=== PATIENT | female | born 1985 | race American Indian/Alaskan Native ===

== ENCOUNTER 2017-02-08 17:12 | Emergency (ER) | payer OTHER ==
[2017-02-08] MEDS ORDERED: ULTRAM PO ONE (19:44)
[2017-02-08 20:02] LABS: Bilirubin,Urine NEG (Negative); Blood,Urine NEG (Negative); Ketones,Urine TR mg/dL (Negative); Leukocyte Esterase,Urine TR (Negative); Mucus,Urine 2+ /HPF; Nitrite,Urine NEG (Negative); Urobilinogen,Urine < 2.0 mg/dL (<2.0)
--- NOTE | 2017-02-08 20:54 | Emergency Department Report ---
Entered by TANYA GU, acting as scribe for ISABEL DOMINGUEZ NP. ED ENT HPI - General Chief complaint: Dental/Oral Stated complaint: SEVERE TOOTH PAIN/VAG DISCHARGE Time Seen by Provider: 02/08/17 18:48 Source: patient Mode of arrival: Ambulatory Limitations: No Limitations - History of Present Illness Initial comments: 31 y/o female with no significant PMHx, presents to the ED c/o left upper dental pain that worsened yesterday. She states that she has had intermittent issues with the teeth in that area previously, but states that one of her teeth in that area broke prior to the increase in severity of the symptoms. 10 severity, with no alleviation from taking "left over antibiotics", goody powder , Tylenol, Motrin, Tylenol PM, and Oragel without any relief of the symptoms. Associated symptoms of headache and left ear area pain, but she denies fever. She states that after taking the left over unspecified antibiotics, she began having a white vaginal discharge, vaginal area itching, burning with urination, and some "small white specks" in the external vaginal area. LMP 01/17/2017. Noted the patient did not drive to the ED today and her is in the waiting room to drive her home. MD complaint: tooth pain (broken tooth) -: days(s) (1 day) Location: other (left upper molars) 1 - left upper area molars Severity: severe Severity scale (0 -10): 10 Quality: constant Consistency: constant Improves with: none (no alleviation of the symptoms with goody powder, motrin, tylenol, tylenol PM, and oragel) Worsens with: none Context- Dental: history of dental caries (patient has had intermittent issues with the affected tooth) Associated Symptoms: other (white-elisa vaginal discharge, burning with urination , vaginal area itching). denies: fever - Related Data Previous Rx's Medication Instructions Recorded Last Taken Type Amoxicillin/K Clav Tab [Augmentin 1 tab PO Q12HR 7 Days 02/08/17 Unknown Rx 875 mg] Ibuprofen [Motrin 600 MG tab] 600 mg PO Q8H PRN 7 Days 02/08/17 Unknown Rx Allergies Allergy/AdvReac Type Severity Reaction Status Date / Time No Known Allergies Allergy Verified 02/08/17 17:31 ED Dental HPI - General Chief complaint: Dental/Oral Stated complaint: SEVERE TOOTH PAIN/VAG DISCHARGE Time Seen by Provider: 02/08/17 18:48 Source: patient Mode of arrival: Ambulatory Limitations: No Limitations - Related Data Previous Rx's Medication Instructions Recorded Last Taken Type Amoxicillin/K Clav Tab [Augmentin 1 tab PO Q12HR 7 Days 02/08/17 Unknown Rx 875 mg] Ibuprofen [Motrin 600 MG tab] 600 mg PO Q8H PRN 7 Days 02/08/17 Unknown Rx Allergies Allergy/AdvReac Type Severity Reaction Status Date / Time No Known Allergies Allergy Verified 02/08/17 17:31 ED Review of Systems Comment: All other systems reviewed and negative Constitutional: denies: fever Eyes: denies: eye pain, eye discharge, vision change ENT: dental pain (left upper molars) Respiratory: denies: cough, shortness of breath, wheezing Cardiovascular: denies: chest pain, palpitations Endocrine: no symptoms reported Gastrointestinal: denies: abdominal pain, nausea, diarrhea Genitourinary: other (white vaginal discharge, vaginal area itching, burning with urination, "small white specks" in the external vaginal area) Musculoskeletal: denies: back pain, joint swelling, arthralgia Skin: denies: rash, lesions Neurological: headache Psychiatric: denies: anxiety, depression Hematological/Lymphatic: denies: easy bleeding, easy bruising ED Past Medical Hx - Past Medical History Hx Hypertension: No Hx CVA: No Hx Heart Attack/AMI: No Hx Congestive Heart Failure: No Hx Diabetes: No Hx Deep Vein Thrombosis: No Hx Pulmonary Embolism: No Hx GERD: No Hx Liver Disease: No Hx Renal Disease: No Hx Sickle Cell Disease: No Hx Arthritis: No Hx Headaches / Migraines: No Hx Seizures: No Hx Kidney Stones: No Hx Psychiatric Treatment: No Hx Asthma: Yes Hx COPD: No Hx Tuberculosis: No Hx Dementia: No Hx HIV: No - Surgical History Past Surgical History?: No Hx Coronary Stent: No Hx Open Heart Surgery: No Hx Pacemaker: No Hx Internal Defibrillator: No Hx Cholecystectomy: No Hx Appendectomy: No Hx Breast Surgery: No - Social History Smoking Status: Current Some Day Smoker Substance Use Type: Alcohol - Medications Home Medications: Home Medications Medication Instructions Recorded Confirmed Last Taken Type Amoxicillin/K Clav Tab [Augmentin 1 tab PO Q12HR 7 Days 02/08/17 Unknown Rx 875 mg] Ibuprofen [Motrin 600 MG tab] 600 mg PO Q8H PRN 7 Days 02/08/17 Unknown Rx ED Physical Exam - General Limitations: No Limitations General appearance: alert, in no apparent distress - Head Head exam: Present: atraumatic, normocephalic - Eye Eye exam: Present: normal appearance, EOMI - ENT ENT exam: Present: normal orophraynx, normal external ear exam, other (noted are diffuse caries in the left upper molars, with no signs of drainage or dental abscess) - Neck Neck exam: Present: normal inspection, full ROM. Absent: tenderness - Respiratory Respiratory exam: Present: normal lung sounds bilaterally. Absent: respiratory distress, wheezes, rales, rhonchi, stridor - Cardiovascular Cardiovascular Exam: Present: regular rate, normal rhythm, normal heart sounds. Absent: systolic murmur, diastolic murmur, rubs, gallop - GI/Abdominal GI/Abdominal exam: Present: soft. 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 Absent: erythema, swelling, lesions - Extremities Exam Extremities exam: Present: normal inspection, full ROM - Back Exam Back exam: Present: normal inspection, full ROM - Neurological Exam Neurological exam: Present: alert, oriented X3, CN II-XII intact, normal gait - Psychiatric Psychiatric exam: Present: normal affect, normal mood - Skin Skin exam: Present: warm, dry, intact, normal color. Absent: rash ED Course Vital Signs 02/08/17 17:32 Temperature 98.2 F Pulse Rate 86 Respiratory 19 Rate Blood Pressure 135/93 O2 Sat by Pulse 100 Oximetry ED Medical Decision Making - Medical Decision Making Ed course: 31-year-old female that presents with left first and second molars. 1- I instructed the patient to follow with the dentist as soon as possible. 2- I instructed the patient to take antibiotics as prescribed. Finish full course of antibiotics. 3- UA and test obtained and sent to lab. No signs of urinary tract infection negative for recent test. 4-at the time of discharge the patient does not seem toxic or ill appearance. No signs and distress noted. 5- patient agreed to discharge plan and treatment. No further questions noted from the patient. ED Disposition Clinical Impression: Dental caries Disposition: DISCHARGED TO HOME OR SELFCARE Is pt being admited?: No Does the pt Need Aspirin: No Condition: Stable Instructions: Dental Caries (ED) Additional Instructions: Please follow-up with your dentist as soon as possible. If symptoms worsen such as severe headache, abscess, facial numbness or pain report back to emergency room. Take full course of antibiotic as prescribed. Prescriptions: Amoxicillin/K Clav Tab [Augmentin 875 mg] 1 tab PO Q12HR 7 Days Ibuprofen [Motrin 600 MG tab] 600 mg PO Q8H PRN 7 Days PRN Reason: Pain Referrals: PRIMARY CARE,MD [Primary Care Provider] - 3-5 Days [facility] [Outside] - 24 Hours This documentation as recorded by the BRITTANIE waite GRACE,accurately reflects the service I personally performed and the decisions made by ,ISABEL DOMINGUEZ, [employer] DIRECTOR.
[2017-02-08 21:07] VITALS: BP 123/88
== END 2017-02-08 21:05 | disposition home or self-care (01) ==
LOC: ED 17:12
DX: K02.9 Dental caries, unspecified (principal); J45.909 Unspecified asthma, uncomplicated; Z72.0 Tobacco use
CPT/HCPCS: 81001; 81025; 99283

== ENCOUNTER 2017-04-09 14:33 | Emergency (ER) | payer SELFPAY ==
--- NOTE | 2017-04-09 15:34 | XRay Report ---
LEFT HAND, 2 views: History: Left thumb injury, pain. Posterior dislocation of the distal interphalangeal joint of the left thumb is identified. No associated fracture. The remaining bony structures and joint spaces are unremarkable. IMPRESSION: Dislocation, distal interphalangeal joint, left thumb.
[2017-04-09] MEDS ORDERED: NORCO 7.5/325 PO ONE (17:30)
[2017-04-09] MEDS ORDERED: FLEXERIL PO ONE (17:30)
[2017-04-09] MEDS ORDERED: PERCOCET 5/325 PO ONE (17:31)
[2017-04-09] MEDS ORDERED: XYLOCAINE 1% MPF 5 mL INFILTRATI ONE (17:42)
[2017-04-09] MEDS ORDERED: MORPHINE IM ONE (18:09)
[2017-04-09] MEDS ORDERED: ZOFRAN PO ONE (18:11)
[2017-04-09] MEDS ORDERED: ZOFRAN ODT ONE (18:14)
[2017-04-09] MEDS ORDERED: ZOFRAN ODT PO ONE (18:19)
--- NOTE | 2017-04-09 18:39 | Emergency Department Report ---
<ZUNILDA LING - Last Filed: 04/09/17 18:51> ED Upper Extremity Inj HPI - General Chief Complaint: Extremity Injury, Upper Stated Complaint: LEFT THUMB INJURY/PAIN Source: patient Mode of arrival: Ambulatory Limitations: No Limitations - History of Present Illness Initial Comments: 32 year old female presents to ED with left thumb pain. patient states she tripped, fell and hit her hand on wall. patient is stable, neurologically intact and in no acute distress. MD Complaint: Injury to:: left -: Gradual Other Extremity Injury: Fingers: Left (thumb) Other Injuries: none Improves With: none Worsens With: none Context: fall Associated Symptoms: denies other symptoms - Related Data Previous Rx's Medication Instructions Recorded Last Taken Type Naproxen [Naprosyn TAB] 500 mg PO BID #20 tablet 04/09/17 Unknown Rx traMADol [Ultram 50 MG tab] 50 mg PO Q4HR PRN #20 tablet 04/09/17 Unknown Rx Allergies Allergy/AdvReac Type Severity Reaction Status Date / Time No Known Allergies Allergy Verified 04/09/17 14:51 ED Review of Systems ROS: Stated complaint: LEFT THUMB INJURY/PAIN Other details as noted in HPI Constitutional: denies: chills, fever Eyes: denies: eye pain, eye discharge, vision change ENT: denies: ear pain, throat pain Respiratory: denies: cough, shortness of breath, wheezing Cardiovascular: denies: chest pain, palpitations Endocrine: no symptoms reported Gastrointestinal: denies: abdominal pain, nausea, diarrhea Genitourinary: denies: urgency, dysuria, discharge Musculoskeletal: joint swelling, arthralgia. denies: back pain Skin: denies: rash, lesions Neurological: denies: headache, weakness, paresthesias Psychiatric: denies: anxiety, depression Hematological/Lymphatic: denies: easy bleeding, easy bruising ED Past Medical Hx - Past Medical History Hx Hypertension: No Hx CVA: No Hx Heart Attack/AMI: No Hx Congestive Heart Failure: No Hx Diabetes: No Hx Deep Vein Thrombosis: No Hx Pulmonary Embolism: No Hx GERD: No Hx Liver Disease: No Hx Renal Disease: No Hx Sickle Cell Disease: No Hx Arthritis: No Hx Headaches / Migraines: No Hx Seizures: No Hx Kidney Stones: No Hx Psychiatric Treatment: No Hx Asthma: Yes Hx COPD: No Hx Tuberculosis: No Hx Dementia: No Hx HIV: No - Surgical History Hx Coronary Stent: No Hx Open Heart Surgery: No Hx Pacemaker: No Hx Internal Defibrillator: No Hx Cholecystectomy: No Hx Appendectomy: No Hx Breast Surgery: No - Social History Smoking Status: Current Every Day Smoker Substance Use Type: Alcohol - Medications Home Medications: Home Medications Medication Instructions Recorded Confirmed Last Taken Type Naproxen [Naprosyn TAB] 500 mg PO BID #20 tablet 04/09/17 Unknown Rx traMADol [Ultram 50 MG tab] 50 mg PO Q4HR PRN #20 tablet 04/09/17 Unknown Rx ED Physical Exam - General Limitations: No Limitations General appearance: alert, in no apparent distress - Head Head exam: Present: atraumatic, normocephalic - Eye Eye exam: Present: normal appearance - ENT ENT exam: Present: mucous membranes moist - Neck Neck exam: Present: normal inspection. Absent: tenderness - Respiratory Respiratory exam: Present: normal lung sounds bilaterally. Absent: respiratory distress - Cardiovascular Cardiovascular Exam: Present: regular rate, normal rhythm. Absent: systolic murmur, diastolic murmur, rubs, gallop - GI/Abdominal GI/Abdominal exam: Present: soft, normal bowel sounds. Absent: tenderness - Extremities Exam Extremities exam: Present: normal inspection - Expanded Upper Extremity Exam Left Shoulder Exam: Present: normal inspection, full ROM Upper Arm exam: Present: normal inspection, full ROM Elbow exam: Present: normal inspection, full ROM Forearm Wrist exam: Present: normal inspection, full ROM Hand Wrist exam: Present: tenderness (left thumb), deformity, dislocation Neuro motor exam: Present: wrist extension intact Neurosensory exam: Present: radial nerve intact Vascular: Present: normal capillary refill, radial pulse. Absent: vascular compromise - Back Exam Back exam: Present: normal inspection, full ROM. Absent: tenderness - Neurological Exam Neurological exam: Present: alert, oriented X3, normal gait - Psychiatric Psychiatric exam: Present: normal affect, normal mood - Skin Skin exam: Present: warm, dry, intact, normal color. Absent: rash ED Course Vital Signs 04/09/17 14:51 Temperature 98.6 F ED Medical Decision Making - Radiology Data Radiology results: report reviewed xr hand left: dislocation, distal interphalangeal joint, left thumb. - Medical Decision Making 32 year old female presents to ED with left thumb pain. I have manually reduced patient's thumb and ordered second imaging study for reassesment. Critical care attestation.: If time is entered above; I have spent that time in minutes in the direct care of this critically ill patient, excluding procedure time. ED Disposition Clinical Impression: Dislocation closed, fingers Qualifiers: Encounter type: initial encounter Qualified Code(s): S63.259A - Unspecified dislocation of unspecified finger, initial encounter Disposition: - TO HOME OR SELFCARE Is pt being admited?: No Does the pt Need Aspirin: No Condition: Good Instructions: Finger Dislocation (ED) Prescriptions: Naproxen [Naprosyn TAB] 500 mg PO BID #20 tablet traMADol [Ultram 50 MG tab] 50 mg PO Q4HR PRN #20 tablet PRN Reason: Pain Referrals: SANDRA ARGUETA MD [Staff Physician] - 24 Hours Forms: Work/School Release Form(ED) <LIZZ MARES - Last Filed: 04/09/17 19:53> ED Medical Decision Making - Radiology Data Radiology results: image reviewed interpreted by me: Second images of the left thumb reveals complete reduction of previously noted dislocation. No visible fractures noted. - Medical Decision Making I resumed care of patient from my colleague. Reviewed postreduction x-rays with the patient in room. Patient placed in thumb spica splint to keep joint immobilized. I will refer patient to orthopedics for further evaluation. Patient is in agreement with treatment plan patient is stable for discharge. ED Disposition Is pt being admited?: No Does the pt Need Aspirin: No Time of Disposition: 19:53
--- NOTE | 2017-04-09 20:25 | XRay Report ---
FINAL REPORT EXAM: XR FINGER(S) 2 LT HISTORY: post-reduction of dislocation involving the DIP joint of the left thumb TECHNIQUE: AP and lateral views of the left thumb PRIORS: X-rays left hand 04/09/2017 at 1514 hours FINDINGS: There has been successful reduction of the dislocation involving the distal interphalangeal joint of the left thumb. There is no evidence for acute fracture. Generalized soft tissue swelling is present throughout the thumb. IMPRESSION: Successful reduction of the 1st DIP joint dislocation without fracture.
== END 2017-04-09 20:33 | disposition home or self-care (01) ==
LOC: ED 14:33
DX: S63.145A Dislocation of distal interphalangeal joint of left thumb, initial encounter (principal); J45.909 Unspecified asthma, uncomplicated; F17.200 Nicotine dependence, unspecified, uncomplicated; W18.09XA Striking against other object with subsequent fall, initial encounter; Y93.89 Activity, other specified; Y99.8 Other external cause status; Y92.89 Other specified places as the place of occurrence of the external cause
CPT/HCPCS: 26670; 73120; 73140; 96372; 99284; J2270; Q0162

== ENCOUNTER 2018-02-25 02:16 | Emergency (ER) | payer OTHER ==
[2018-02-25 03:36] LABS: Basophils % (Auto) 0.6 % (0.0-1.8); Eosinophils # (Auto) 0.2 K/mm3 (0.0-0.4); Eosinophils % (Auto) 2.8 % (0.0-4.3); Hematocrit 36.3 % (30.3-42.9); Hemoglobin 12.4 gm/dl (10.1-14.3); Lymphocytes # (Auto) 3.3 K/mm3 (1.2-5.4); Mean Corpuscular HGB Conc 34 % (30-34); Mean Corpuscular Hemoglobin 31 pg (28-32); Mean Corpuscular Volume 90 fl (79-97); Monocytes # (Auto) 0.6 K/mm3 (0.0-0.8); Monocytes % (Auto) 7.6 % (0.0-7.3); Platelet Count 316 K/mm3 (140-440); Red Blood Count 4.05 M/mm3 (3.65-5.03); Red Cell Distribution Width 14.3 % (13.2-15.2)
[2018-02-25 03:45] LABS: BUN/Creatinine Ratio 18; Blood Urea Nitrogen 9 mg/dL (7-17); Calcium 8.6 mg/dL (8.4-10.2); Hemolysis Index 3
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
[2018-02-25 03:53] LABS: Bilirubin,Urine NEG (Negative); Blood,Urine NEG (Negative); Color,Urine Yellow (Yellow); Mucus,Urine 2+ /HPF; WBC,Urine < 1.0 /HPF (0.0-6.0)
[2018-02-25 04:01] LABS: Amphetamine Screen,Urine PRESUMPTIVE NEGATIVE; Benzodiazepines Screen,Urine PRESUMPTIVE NEGATIVE; Cocaine Screen,Urine PRESUMPTIVE NEGATIVE; Methadone Screen,Urine PRESUMPTIVE NEGATIVE; Opiate Screen,Urine PRESUMPTIVE NEGATIVE
--- NOTE | 2018-02-25 04:30 | XRay Report ---
FINAL REPORT EXAM: XR HIP 2-3V LT HISTORY: decreased ROM OF LEFT HIP TECHNIQUE: An AP view of the pelvis was obtained along with a frogleg view of the left hip. FINDINGS: The left hip joint appears normal. Joint fluid is not seen. The bony pelvic ring appears intact. The SI joints right hip joint appear normal. The soft tissues are unremarkable. IMPRESSION: Within normal limits.
[2018-02-25 04:43] LABS: Cannabinoid Screen,Urine PRESUMPTIVE POSITIVE
[2018-02-25] MEDS ORDERED: GEODON IM PRN (09:44)
--- NOTE | 2018-02-25 13:11 | Consultation ---
History of Present Illness - Reason for Consult Consult date: 02/25/18 Reason for consult: Mental Health Evaluation Requesting physician: HALEY SINGH - Chief Complaint Chief complaint: "I don't want to talk" - History of Present Psychiatric Illness 33 years old female with history of severe depression presenting to the ER for a possible suicide attempt. Today the patient is uncooperative during the assessment. She was asked several times during the interview if she want to discuss what happened prior to coming to the ER and she replied "No." Medications and Allergies Allergies Allergy/AdvReac Type Severity Reaction Status Date / Time No Known Allergies Allergy Verified 04/09/17 14:51 Home Medications Medication Instructions Recorded Confirmed Last Taken Type Naproxen [Naprosyn TAB] 500 mg PO BID #20 tablet 04/09/17 Unknown Rx traMADol [Ultram 50 MG tab] 50 mg PO Q4HR PRN #20 tablet 04/09/17 Unknown Rx Active Meds: Active Medications Ziprasidone (Geodon) 10 mg IM Q2H PRN PRN Reason: Agitation Last Admin: 02/25/18 10:23 Dose: 10 mg Past psychiatric history - Past Medical History Past Medical History: other (Unable to oatain) Past Surgical History: Other (Unable to obtain) - past Psychiatric treatment and history psychiatric treatment history: Unable to obtain a psy hx and afam psy hx. - Social History Social history: other (Unable to obtain) Mental Status Exam - Vital signs Last Vital Signs Temp 98.8 F 02/25/18 02:29 Pulse 77 02/25/18 02:29 Resp 18 02/25/18 02:29 BP 139/95 02/25/18 02:29 Pulse Ox 100 02/25/18 02:29 - Exam Narrative exam: Unable to complete the MSE because the patient refused to cooperate. Results Result Diagrams: 02/25/18 03:02 02/25/18 03:02 Abnormal lab results 02/25/18 02/25/18 02/25/18 Range/Units 03:02 03:02 03:02 Lymph % (Auto) (13.4-35.0) % [place] % (Auto) (0.0-7.3) % Sodium 135 L (137-145) mmol/L Carbon Dioxide 21 L (22-30) mmol/L Creatinine 0.5 L (0.7-1.2) mg/dL U Epithel Cells (Auto) (0-13.0) /HPF Salicylates < 0.3 L (2.8-20.0) mg/dL Acetaminophen < 5.0 L (10.0-30.0) ug/mL 02/25/18 02/25/18 Range/Units 03:02 Unknown Lymph % (Auto) 42.0 H (13.4-35.0) % [place] % (Auto) 7.6 H (0.0-7.3) % Sodium (137-145) mmol/L Carbon Dioxide (22-30) mmol/L Creatinine (0.7-1.2) mg/dL U Epithel Cells (Auto) 17.0 H (0-13.0) /HPF Salicylates (2.8-20.0) mg/dL Acetaminophen (10.0-30.0) ug/mL All other labs normal. Assessment and Plan Assessment and plan: Impression: Today the patient uncooperative during the assessment. Per the record the patient may have attempted suicide. Recommendation/Plan: Continue 1013 and attempt to reassess patient in 24 hours.
[2018-02-25 19:53] VITALS: BP 132/96
== END 2018-02-25 22:55 ==
LOC: ED 02:16 → EEVIPCON 02:16 → ED 22:55
DX: F32.9 Major depressive disorder, single episode, unspecified (principal); F17.200 Nicotine dependence, unspecified, uncomplicated
CPT/HCPCS: 36415; 73502; 80048; 80307; 81001; 84703; 85025; 96372; 99285; G0480; J3486; 80320

== ENCOUNTER 2020-08-02 08:13 | Emergency (ER) | payer SELFPAY ==
[2020-08-02 08:40] VITALS: BP 113/77
--- NOTE | 2020-08-02 08:56 | XRay Report ---
RIGHT HAND 2 VIEWS INDICATION: swelling. COMPARISON: None. IMPRESSION: There is moderate to severe diffuse soft tissue swelling. No acute osseous injury or yariel int pathology is detected. Signer Name: Elian Bryan Jr, MD Signed: 08/02/2020 8:52 AM Workstation Name: [id number]
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
[2020-08-02] MEDS ORDERED: IBUPROFEN 800 MG TAB PO ONE (10:35)
[2020-08-02] MEDS ORDERED: HYDROcodone/ACETAMINOPHEN 5-325 MG TAB PO ONE (10:35)
--- NOTE | 2020-08-02 11:00 | XRay Report ---
XR hand 1V RT INDICATION: oblique view;snuffbox pain post crush injury. COMPARISON: Exam done earlier on 08/02/2020 FINDINGS: There is no appreciable scaphoid fracture or other acute fracture in the right hand. Signer Name: Sergio Dominguez MD Signed: 08/02/2020 10:56 AM Workstation Name: [id number]
== END 2020-08-02 12:13 | disposition home or self-care (01) ==
LOC: ED 08:13
DX: S67.21XA Crushing injury of right hand, initial encounter (principal); J45.909 Unspecified asthma, uncomplicated; F17.200 Nicotine dependence, unspecified, uncomplicated; Z79.899 Other long term (current) drug therapy; X58.XXXA Exposure to other specified factors, initial encounter; Y93.89 Activity, other specified; Y92.89 Other specified places as the place of occurrence of the external cause; Y99.8 Other external cause status

== ENCOUNTER 2020-11-05 11:38 | Emergency (ER) | payer SELFPAY ==
[2020-11-05 12:04] VITALS: BP 113/71
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
--- NOTE | 2020-11-05 13:02 | Cat Scan Report ---
CT head/brain wo con INDICATION / CLINICAL INFORMATION: 35 years Female; left limb numbness. TECHNIQUE: Routine CT head without contrast. All CT scans at this location are performed using CT dos e reduction for ALARA by means of automated exposure control. COMPARISON: No previous exams available for comparison. FINDINGS: The brain such appropriate attenuation. The ventricular system is within normal limits in size and co nfiguration. There is no CT ends of acute intracranial hemorrhage or significant mass effect. ORBITS: No significant abnormality of visualized orbits. SINUSES / MASTOIDS: No significant abnormality in the visualized paranasal sinuses or mastoid air harinder ls. CRANIOCERVICAL JUNCTION: No significant abnormality. ADDITIONAL FINDINGS: None. IMPRESSION: 1. There is no CT evidence of acute intracranial process. Signer Name: Rodrigo Cody MD Signed: 11/05/2020 12:58 PM Workstation Name: [id number]
[2020-11-05] MEDS ORDERED: IBUPROFEN 600 MG TAB PO ONE (13:21)
[2020-11-05 14:36] LABS: Basophils % (Auto) 0.7 % (0.0-1.8); Eosinophils # (Auto) 0.3 K/mm3 (0.0-0.4); Eosinophils % (Auto) 4.6 % (0.0-4.3); Hematocrit 32.6 % (30.3-42.9); Hemoglobin 10.4 gm/dl (10.1-14.3); Lymphocytes # (Auto) 2.3 K/mm3 (1.2-5.4); Mean Corpuscular HGB Conc 32 % (30-34); Mean Corpuscular Volume 86 fl (79-97); Monocytes # (Auto) 0.5 K/mm3 (0.0-0.8); Monocytes % (Auto) 8.1 % (0.0-7.3); Platelet Count 350 K/mm3 (140-440); Red Blood Count 3.77 M/mm3 (3.65-5.03); Red Cell Distribution Width 16.6 % (13.2-15.2)
[2020-11-05 15:08] LABS: Alanine Aminotransferase 10 units/L (7-56); Blood Urea Nitrogen 6 mg/dL (7-17); Calcium 8.8 mg/dL (8.4-10.2); Hemolysis Index 2
[2020-11-05 15:09] LABS: BUN/Creatinine Ratio 9
== END 2020-11-05 15:23 | disposition home or self-care (01) ==
LOC: ED 11:38
DX: G56.02 Carpal tunnel syndrome, left upper limb (principal); R20.2 Paresthesia of skin; J45.909 Unspecified asthma, uncomplicated; Z79.899 Other long term (current) drug therapy; Z98.890 Other specified postprocedural states
CPT/HCPCS: 36415; 70450; 80053; 82962; 85025

== ENCOUNTER 2020-12-21 08:14 | Emergency (ER) | payer SELFPAY ==
[2020-12-21 08:21] VITALS: BP 125/79
[2020-12-21 09:00] LABS: Basophils # (Auto) 0.1 K/mm3 (0.0-0.1); Basophils % (Auto) 0.7 % (0.0-1.8); Eosinophils # (Auto) 0.4 K/mm3 (0.0-0.4); Hematocrit 31.8 % (30.3-42.9); Hemoglobin 10.7 gm/dl (10.1-14.3); Lymphocytes # (Auto) 2.8 K/mm3 (1.2-5.4); Lymphocytes % (Auto) 36.9 % (13.4-35.0); Mean Corpuscular HGB Conc 34 % (30-34); Mean Corpuscular Volume 85 fl (79-97); Monocytes # (Auto) 0.6 K/mm3 (0.0-0.8); Monocytes % (Auto) 8.1 % (0.0-7.3); Platelet Count 384 K/mm3 (140-440); Red Blood Count 3.75 M/mm3 (3.65-5.03); Red Cell Distribution Width 17.9 % (13.2-15.2)
[2020-12-21 09:24] LABS: Alanine Aminotransferase 9 units/L (7-56); Blood Urea Nitrogen 10 mg/dL (7-17); Calcium 8.6 mg/dL (8.4-10.2); Hemolysis Index 0
[2020-12-21 09:30] LABS: BUN/Creatinine Ratio 14
[2020-12-21] MEDS ORDERED: IBUPROFEN 600 MG TAB PO ONE (10:07)
--- NOTE | 2020-12-21 10:27 | Vascular Lab Report ---
DUPLEX DOPPLER LOWER EXTREMITY VEINS, RIGHT INDICATION / CLINICAL INFORMATION: right leg pain. TECHNIQUE: Duplex doppler imaging was performed through the veins of the right lower extremity using venous comp ression and other maneuvers. COMPARISON: None available. FINDINGS: RIGHT COMMON FEMORAL VEIN: Negative. RIGHT FEMORAL VEIN: Negative. RIGHT POPLITEAL VEIN: Negative. RIGHT CALF VEINS: Negative. ADDITIONAL FINDINGS: 2.8 cm fluid collection along the lateral aspect of the right knee in the area o f pain and swelling. IMPRESSION: 1. No sonographic evidence for DVT in the right lower extremity. 2. Fluid collection along the lateral aspect of the right knee may represent focal soft tissue edema or even a partially visualized knee joint effusion. Signer Name: Jose A Valdez MD Signed: 12/21/2020 10:22 AM Workstation Name: [id number]
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
== END 2020-12-21 12:43 | disposition home or self-care (01) ==
LOC: ED 08:14
DX: S86.911A Strain of unspecified muscle(s) and tendon(s) at lower leg level, right leg, initial encounter (principal); G56.02 Carpal tunnel syndrome, left upper limb; F17.200 Nicotine dependence, unspecified, uncomplicated; Z79.899 Other long term (current) drug therapy; X58.XXXA Exposure to other specified factors, initial encounter; Y93.89 Activity, other specified; Y92.89 Other specified places as the place of occurrence of the external cause; Y99.8 Other external cause status
CPT/HCPCS: 36415; 80053; 84703; 85025

== ENCOUNTER 2022-07-14 02:25 | Emergency (ER) | payer SELFPAY ==
[2022-07-14 02:38] VITALS: BP 99/73
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
== END 2022-07-14 07:42 | disposition home or self-care (01) ==
LOC: ED 02:25
DX: M65.842 Other synovitis and tenosynovitis, left hand (principal); J45.909 Unspecified asthma, uncomplicated; F17.200 Nicotine dependence, unspecified, uncomplicated; Z79.899 Other long term (current) drug therapy
CPT/HCPCS: 99282; 99283